=== PATIENT | male | born 1985 | race Caucasian/White ===

== ENCOUNTER 2022-11-05 02:49 | Inpatient (IN) | payer MEDICAID, OTHER ==
[~2022-11-05] VITALS: Ht 172.7 cm; Wt 76.2 kg
[~2022-11-05 02:49] MED LIST: RISP3TAB35 PO
[2022-11-05] MEDS ORDERED: LORazepam 2 MG TABLET PO ONE (03:45)
[2022-11-05] MEDS ORDERED: HALOPERIDOL LACTATE 5 MG/ML VIAL IM ONE (04:00)
[2022-11-05] MEDS ORDERED: DiphenhydrAMINE HCL 50 MG/ML VIAL IM ONE (04:00)
[2022-11-05] MEDS ORDERED: ZOLPIDEM TARTRATE 10 MG TABLET PO PRN (04:15)
[2022-11-05] MEDS ORDERED: QUEtiapine FUMARATE 100 MG TABLET PO PRN (04:15)
[2022-11-05 07:49] LABS: COVID AG,FIA SOURCE NASAL SWAB
[2022-11-05 07:50] LABS: BASOPHILS % (AUTO) 0.7 % (0.0-2.0); EOSINOPHILS % (AUTO) 2.5 % (1.0-6.0); HEMATOCRIT 39.2 % (41-53); LYMPHOCYTES # (AUTO) 2.4 K/uL (1.0-4.8); LYMPHOCYTES % (AUTO) 36.7 % (22.0-44.0); MEAN CORPUSCULAR HEMOGLOBIN 28.1 pg (26.0-34.0); MEAN CORPUSCULAR HGB CONC 33.1 G/dL (31.0-37.0); MEAN CORPUSCULAR VOLUME 85 fL (80-100); MONOCYTES # (AUTO) 0.7 K/uL (0.1-1.0); MONOCYTES % (AUTO) 10.6 % (2.0-9.0); NEUTROPHILS # (AUTO) 3.2 K/uL (1.8-7.7); NEUTROPHILS % (AUTO) 49.5 % (40.0-70.0); PLATELET COUNT (AUTO) 187 K/uL (150-450); RED BLOOD CELL COUNT(AUTO) 4.62 MIL/uL (4.50-5.90); RED CELL DISTRIBUTION WIDTH 13.6 % (11.5-14.5)
[2022-11-05 07:59] LABS: ANION GAP 9 mmol/L (8-16); CALCIUM, TOTAL 8.6 mg/dL (8.8-10.5); CARBON DIOXIDE 26 mmol/L (22-29); CHLORIDE 109 mmol/L (98-107); CREATININE 0.81 mg/dL (0.60-1.30); GLOMERULAR FILTR. RATE CALC > 60 mL/min (>60); GLUCOSE,RANDOM 101 mg/dL (70-110); SODIUM SERUM 144 mmol/L (136-145)
[2022-11-05 08:04] LABS: ALANINE AMINOTRANSFERASE 24 U/L (12-78); ALBUMIN 3.1 g/dL (3.4-5.0); ALKALINE PHOSPHATASE 78 U/L (46-116); ASPARTATE AMINOTRANSFERASE 16 U/L (15-37); BILIRUBIN,TOTAL 0.2 mg/dL (0.1-1.0); TOTAL PROTEIN, SERUM 6.2 g/dL (6.4-8.2)
[2022-11-05 14:52] VITALS: BP 113/71; PULSE 63; RESP 18; TEMP 97.6; O2SAT 99
[2022-11-05] MEDS ORDERED: PNEUMOCOCCAL VACCINE POLYVALENT 0.5 ML VIAL [PPSV23] IM. ONE (15:15)
[2022-11-05] MEDS ORDERED: PALIPERIDONE PALMITATE 234 MG/1.5 ML SYRINGE IM ONE (15:45)
[2022-11-05] MEDS ORDERED: MAG HYDROX/AL HYDROX/SIMETH ES 30 ML SUSPENSION UDCUP PO PRN (15:45)
[2022-11-05] MEDS ORDERED: GuaiFENesin/D-METHORPHAN [SUGAR-FREE] 200-20MG/10 ML SYRUP UDCUP PO PRN (15:45)
[2022-11-05] MEDS ORDERED: TUBERCULIN, PURIFIED PROTEIN DERIVATIVE 5 TU/0.1 ML SYRINGE ID ONE (15:45)
[2022-11-05] MEDS ORDERED: HydrOXYzine PAMOATE 50 MG CAPSULE PO PRN (15:45)
[2022-11-05] MEDS ORDERED: PROMETHAZINE HCL 25 MG TABLET PO PRN (15:45)
[2022-11-05] MEDS ORDERED: ACETAMINOPHEN 325 MG TABLET PO PRN (15:45)
[2022-11-05] MEDS ORDERED: MAGNESIUM HYDROXIDE SUSPENSION 30 ML UDCUP PO PRN (15:45)
[2022-11-05] MEDS ORDERED: LOPERAMIDE HCL 2 MG CAPSULE PO PRN (15:45)
[2022-11-05] MEDS: THIAMINE 100 MG TABLET PO SCH (16:47)
[2022-11-05 20:21] VITALS: BP 120/80; PULSE 82; RESP 20; TEMP 98.1; O2SAT 98
[2022-11-05] MEDS: MELATONIN 5 MG TABLET PO SCH (20:48)
[2022-11-05] MEDS: QUEtiapine FUMARATE 200 MG TABLET PO SCH (20:49)
[2022-11-06 08:22] LABS: CHOL/HDL RATIO 2.8 (4.2-7.3); FREE T4 (FREE THYROXINE) 1.05 ng/dL (0.76-1.46); THYROID STIMULATING HORMONE 0.81 uIU/mL (0.36-3.74)
[2022-11-06 08:27] VITALS: BP 121/74; PULSE 70; RESP 18; TEMP 97.2; O2SAT 95
[2022-11-06 08:28] LABS: HEMOGLOBIN A1C 5.5 % (3.8-5.6)
[2022-11-06] MEDS: OMEGA-3/DHA/EPA/FISH OIL 1,000 MG CAPSULE PO SCH (08:33)
[2022-11-06] MEDS: MULTIVITAMINS WITH MINERALS, THERAPEUTIC TABLET PO SCH (08:33)
[2022-11-06] MEDS: FOLIC ACID 1 MG TABLET PO SCH (08:33)
[2022-11-06] MEDS: THIAMINE 100 MG TABLET PO SCH ×2 (08:33→16:47)
[2022-11-06] MEDS: NALTREXONE HCL 50 MG TABLET PO SCH (08:33)
[2022-11-06 20:08] VITALS: BP 121/77; PULSE 82; RESP 18; TEMP 97.1
[2022-11-06] MEDS: MELATONIN 5 MG TABLET PO SCH ×2 (20:41→22:27)
[2022-11-06] MEDS: QUEtiapine FUMARATE 200 MG TABLET PO SCH ×2 (20:41→22:27)
[2022-11-07] MEDS: LORazepam 2 MG TABLET PO PRN (07:57)
[2022-11-07] MEDS: FOLIC ACID 1 MG TABLET PO SCH (07:57)
[2022-11-07] MEDS: OMEGA-3/DHA/EPA/FISH OIL 1,000 MG CAPSULE PO SCH (07:57)
[2022-11-07] MEDS: MULTIVITAMINS WITH MINERALS, THERAPEUTIC TABLET PO SCH (07:57)
[2022-11-07] MEDS: NALTREXONE HCL 50 MG TABLET PO SCH (07:57)
[2022-11-07] MEDS: THIAMINE 100 MG TABLET PO SCH ×2 (07:58→17:13)
[2022-11-07 08:30] VITALS: BP 118/76; PULSE 84; RESP 17; TEMP 97.6
[2022-11-07 20:16] VITALS: BP 131/76; PULSE 82; RESP 18; TEMP 97.1; O2SAT 97
[2022-11-07] MEDS: MELATONIN 5 MG TABLET PO SCH (20:53)
[2022-11-07] MEDS ORDERED: QUEtiapine FUMARATE 200 MG TABLET PO SCH (21:00)
[2022-11-08 08:27] VITALS: BP 103/57; PULSE 67; RESP 16; TEMP 98; O2SAT 97
[2022-11-08] MEDS: THIAMINE 100 MG TABLET PO SCH ×2 (09:06→17:35)
[2022-11-08] MEDS: OMEGA-3/DHA/EPA/FISH OIL 1,000 MG CAPSULE PO SCH (09:06)
[2022-11-08] MEDS: FOLIC ACID 1 MG TABLET PO SCH (09:06)
[2022-11-08] MEDS: MULTIVITAMINS WITH MINERALS, THERAPEUTIC TABLET PO SCH (09:06)
[2022-11-08] MEDS: NALTREXONE HCL 50 MG TABLET PO SCH (09:06)
[2022-11-08] MEDS ORDERED: PALIPERIDONE PALMITATE 234 MG/1.5 ML SYRINGE IM ONE (09:15)
[2022-11-08] MEDS: LORazepam 2 MG TABLET PO PRN (15:48)
[2022-11-08] MEDS ORDERED: NALT50TA PO (16:41)
[2022-11-08] MEDS ORDERED: MELA5TAB40 PO (16:41)
[2022-11-08] MEDS ORDERED: OMEG-135 PO (16:41)
[2022-11-08] MEDS ORDERED: QUET200T30 PO (16:41)
[2022-11-09] MEDS ORDERED: PALIPERIDONE PALMITATE 156 MG/ML SYRINGE IM ONE (09:00)
[2022-11-12] MEDS ORDERED: PALIPERIDONE PALMITATE 156 MG/ML SYRINGE IM ONE (09:00)
== END 2022-11-08 18:36 | disposition home or self-care (01) | DRG 750 ==
LOC: EMS 02:49 → 3EC 11:30
PROVIDERS: ADMIT Psychiatry & Neurology Psychiatry; ATTEND Psychiatry & Neurology Psychiatry
DX: F20.9 Schizophrenia, unspecified (principal); Z91.148 Patient's other noncompliance with medication regimen for other reason; F15.90 Other stimulant use, unspecified, uncomplicated; Z20.822 Contact with and (suspected) exposure to COVID-19; F17.210 Nicotine dependence, cigarettes, uncomplicated; G47.00 Insomnia, unspecified; J44.9 Chronic obstructive pulmonary disease, unspecified; Z55.9 Problems related to education and literacy, unspecified; Z59.9 Problem related to housing and economic circumstances, unspecified; Z63.9 Problem related to primary support group, unspecified; Z65.3 Problems related to other legal circumstances; Z88.8 Allergy status to other drugs, medicaments and biological substances
CPT/HCPCS: 80053; 80061; 83036; 84439; 84443; 85025; 86592; 99285; G0480; J1200; J1630; Q9967

== ENCOUNTER 2022-11-09 23:28 | Emergency (ER) | payer MEDICAID, OTHER ==
[~2022-11-09 23:28] MED LIST changes: +MELA5TAB40 PO; +NALT50TA PO; +OMEG-135 PO; +QUET200T30 PO; -RISP3TAB35 PO
== END 2022-11-09 23:30 | disposition left against medical advice (07) ==
LOC: EMS 23:30
DX: Z53.21 Procedure and treatment not carried out due to patient leaving prior to being seen by health care provider (principal)

== ENCOUNTER 2022-12-25 08:34 | Inpatient (IN) | payer MEDICAID, OTHER ==
[~2022-12-25] VITALS: Ht 177.8 cm; Wt 76.7 kg
[2022-12-25 10:17] LABS: COVID AG,FIA SOURCE NASAL SWAB
[2022-12-25 10:20] LABS: BASOPHILS % (AUTO) 0.5 % (0.0-2.0); EOSINOPHILS % (AUTO) 0.8 % (1.0-6.0); HEMATOCRIT 38.6 % (41-53); HEMOGLOBIN 12.5 g/dL (13.5-17.5); LYMPHOCYTES # (AUTO) 1.2 K/uL (1.0-4.8); LYMPHOCYTES % (AUTO) 15.5 % (22.0-44.0); MEAN CORPUSCULAR HEMOGLOBIN 27.6 pg (26.0-34.0); MEAN CORPUSCULAR HGB CONC 32.4 G/dL (31.0-37.0); MEAN CORPUSCULAR VOLUME 85 fL (80-100); MONOCYTES # (AUTO) 0.7 K/uL (0.1-1.0); MONOCYTES % (AUTO) 9.4 % (2.0-9.0); NEUTROPHILS # (AUTO) 5.6 K/uL (1.8-7.7); NEUTROPHILS % (AUTO) 73.8 % (40.0-70.0); PLATELET COUNT (AUTO) 267 K/uL (150-450); RED BLOOD CELL COUNT(AUTO) 4.53 MIL/uL (4.50-5.90); RED CELL DISTRIBUTION WIDTH 13.8 % (11.5-14.5)
[2022-12-25 10:34] LABS: ANION GAP 10 mmol/L (8-16); CALCIUM, TOTAL 8.7 mg/dL (8.8-10.5); CARBON DIOXIDE 26 mmol/L (22-29); CHLORIDE 103 mmol/L (98-107); CREATININE 0.88 mg/dL (0.60-1.30); GLOMERULAR FILTR. RATE CALC > 60 mL/min (>60); GLUCOSE,RANDOM 104 mg/dL (70-110); POTASSIUM 3.1 mmol/L (3.5-5.1); SODIUM SERUM 139 mmol/L (136-145)
[2022-12-25 10:37] LABS: ALANINE AMINOTRANSFERASE 23 U/L (12-78); ALBUMIN 3.4 g/dL (3.4-5.0); ALKALINE PHOSPHATASE 90 U/L (46-116); ASPARTATE AMINOTRANSFERASE 27 U/L (15-37); BILIRUBIN,TOTAL 0.7 mg/dL (0.1-1.0); TOTAL PROTEIN, SERUM 6.6 g/dL (6.4-8.2)
[2022-12-25] MEDS ORDERED: LORazepam 2 MG/ML VIAL IM ONE (11:00)
[2022-12-25] MEDS ORDERED: DiphenhydrAMINE HCL 50 MG/ML VIAL IM ONE (11:00)
[2022-12-25] MEDS ORDERED: HALOPERIDOL LACTATE 5 MG/ML VIAL IM ONE (11:00)
[2022-12-25] MEDS ORDERED: HALOPERIDOL 5 MG TABLET PO PRN (12:00)
[2022-12-25] MEDS ORDERED: ZOLPIDEM TARTRATE 10 MG TABLET PO PRN (12:00)
[2022-12-25] MEDS ORDERED: LORazepam 2 MG TABLET PO PRN (12:00)
[2022-12-25] MEDS ORDERED: POTASSIUM CHLORIDE 10% 40 MEQ/30 ML LIQUID UDCUP PO ONE (16:15)
[2022-12-25 17:24] VITALS: BP 110/70; PULSE 102; RESP 18; TEMP 97.5; O2SAT 98
[2022-12-25 20:30] VITALS: RESP 18
[2022-12-26] MEDS ORDERED: MAG HYDROX/AL HYDROX/SIMETH ES 30 ML SUSPENSION UDCUP PO PRN (05:30)
[2022-12-26] MEDS ORDERED: ALBUTEROL SULFATE HFA 90 MCG/PUFF 8 GM INHALER IH PRN (05:30)
[2022-12-26] MEDS ORDERED: PETROLATUM,WHITE 28 GM JELLY TP PRN (05:30)
[2022-12-26] MEDS ORDERED: LOPERAMIDE HCL 2 MG CAPSULE PO PRN (05:30)
[2022-12-26] MEDS ORDERED: POTASSIUM CHLORIDE 20 MEQ ER TABLET PO ONE (05:30)
[2022-12-26] MEDS ORDERED: BACITRACIN 28 GM OINTMENT TP PRN (05:30)
[2022-12-26] MEDS ORDERED: ACETAMINOPHEN 325 MG TABLET PO PRN (05:30)
[2022-12-26] MEDS ORDERED: IBUPROFEN 600 MG TABLET PO PRN (05:30)
[2022-12-26] MEDS ORDERED: OMEPRAZOLE 20 MG CAPSULE PO PRN (05:30)
[2022-12-26] MEDS ORDERED: CloNIDine HCL 0.1 MG TABLET PO PRN (05:30)
[2022-12-26] MEDS ORDERED: ONDANSETRON HCL 4 MG TABLET PO PRN (05:30)
[2022-12-26] MEDS ORDERED: MAGNESIUM HYDROXIDE SUSPENSION 30 ML UDCUP PO PRN (05:30)
[2022-12-26] MEDS ORDERED: DOCUSATE SODIUM 100 MG CAPSULE PO PRN (05:30)
[2022-12-26] MEDS ORDERED: BENZOCAINE/MENTHOL LOZENGE PO PRN (05:30)
[2022-12-26 08:51] VITALS: BP 98/60; PULSE 70; RESP 18; TEMP 97.7
[2022-12-26 21:00] VITALS: RESP 18
[2022-12-26] MEDS: QUEtiapine FUMARATE 200 MG TABLET PO SCH (21:00)
[2022-12-27 08:18] LABS: APPEARANCE,URINE CLEAR (CLEAR); BILIRUBIN,URINE NEGATIVE (NEGATIVE); GLUCOSE, URINE (UA) NEGATIVE (NEGATIVE); KETONES,URINE NEGATIVE (NEGATIVE); LEUKOCYTE ESTERASE ,URINE NEGATIVE (NEGATIVE); NITRATE,URINE NEGATIVE (NEGATIVE); OCCULT BLOOD,URINE NEGATIVE (NEGATIVE); PROTEIN,URINE TRACE mg/dL (NEGATIVE); SPECIFIC GRAVITIY, URINE 1.031 (1.003-1.030); UROBILINOGEN,URINE <=1.0 mg/dL (<=1.0)
[2022-12-27 08:20] LABS: AMPHET/METH SCREEN,URINE POSITIVE (NEGATIVE); BARBITURATE SCREEN, URINE NEGATIVE (NEGATIVE); BENZODIAZEPINES SCREEN,URINE NEGATIVE (NEGATIVE); CANNABINOID SCREEN,URINE POSITIVE (NEGATIVE); COCAINE SCREEN,URINE NEGATIVE (NEGATIVE); METHADONE SCREEN, URINE NEGATIVE (NEGATIVE); OPIATE SCREEN,URINE NEGATIVE (NEGATIVE); PHENCYCLIDINE SCREEN,URINE NEGATIVE (NEGATIVE)
[2022-12-27 08:30] VITALS: BP 113/69; PULSE 75; RESP 18; TEMP 97.5; O2SAT 98
[2022-12-27 20:40] VITALS: BP 137/82; PULSE 79; RESP 18; TEMP 97.2; O2SAT 97
[2022-12-27] MEDS: QUEtiapine FUMARATE 200 MG TABLET PO SCH (21:00)
[2022-12-28 08:57] VITALS: RESP 18; O2SAT 98
[2022-12-28] MEDS: SULFAMETHOX/TRIMETH DS 800-160 MG/TABLET PO SCH (18:45)
[2022-12-28] MEDS: MUPIROCIN CALCIUM 2% 22 GM OINTMENT TP SCH (18:45)
[2022-12-28 20:33] VITALS: RESP 20
[2022-12-28] MEDS: QUEtiapine FUMARATE 200 MG TABLET PO SCH (20:55)
[2022-12-29 08:30] VITALS: RESP 18
[2022-12-29] MEDS: SULFAMETHOX/TRIMETH DS 800-160 MG/TABLET PO SCH ×2 (11:25→17:31)
[2022-12-29] MEDS: MUPIROCIN CALCIUM 2% 22 GM OINTMENT TP SCH ×3 (11:25→18:23)
[2022-12-29 20:40] VITALS: BP 114/54; PULSE 75; RESP 20; TEMP 98.3
[2022-12-29] MEDS: QUEtiapine FUMARATE 200 MG TABLET PO SCH (21:00)
[2022-12-30] MEDS: SULFAMETHOX/TRIMETH DS 800-160 MG/TABLET PO SCH ×2 (08:22→17:17)
[2022-12-30 08:43] VITALS: BP 125/89; PULSE 69; RESP 18; TEMP 97.7
[2022-12-30] MEDS: MUPIROCIN CALCIUM 2% 22 GM OINTMENT TP SCH ×3 (10:41→17:17)
[2022-12-30] MEDS: QUEtiapine FUMARATE 200 MG TABLET PO SCH (20:30)
[2022-12-30 20:58] VITALS: BP 124/82; PULSE 76; RESP 18; TEMP 97.6; O2SAT 97
[2022-12-30] MEDS ORDERED: QUET200T30 PO (23:16)
[2022-12-31] MEDS: SULFAMETHOX/TRIMETH DS 800-160 MG/TABLET PO SCH (08:50)
[2022-12-31] MEDS: MUPIROCIN CALCIUM 2% 22 GM OINTMENT TP SCH (08:50)
[2022-12-31] MEDS ORDERED: SULF-261 PO (09:21)
[2022-12-31 10:00] VITALS: BP 140/79; PULSE 79; RESP 18; TEMP 97.8; O2SAT 98
== END 2022-12-31 10:20 | disposition home or self-care (01) | DRG 750 ==
LOC: EMS 08:34 → 3EC 14:21
PROVIDERS: ADMIT Psychiatry & Neurology Psychiatry; ATTEND Psychiatry & Neurology Psychiatry
DX: F20.0 Paranoid schizophrenia (principal); R45.851 Suicidal ideations; E87.6 Hypokalemia; F31.9 Bipolar disorder, unspecified; F41.9 Anxiety disorder, unspecified; G47.00 Insomnia, unspecified; K21.9 Gastro-esophageal reflux disease without esophagitis; Z20.822 Contact with and (suspected) exposure to COVID-19; F19.10 Other psychoactive substance abuse, uncomplicated; K59.00 Constipation, unspecified; F10.10 Alcohol abuse, uncomplicated; Z72.0 Tobacco use; Z79.899 Other long term (current) drug therapy; Z88.8 Allergy status to other drugs, medicaments and biological substances
CPT/HCPCS: 80053; 80307; 81003; 84132; 85025; 99291; G0480; J1200; J1630; J2060